=== PATIENT | female | born 1960 | race Caucasian/White ===

== ENCOUNTER → 2017-07-02 | Outpatient (CLI) | payer OTHER ==
[~2017-07-02] MED LIST: AZAT50 PO; CYCL10 PO; DULO30 PO; ETAN50I SC; HYDACE5 PO; HYDSUL200 PO; IBUP400 PO; IBUP800 PO; LEFL20 PO; METF500 PO; METHYLTREXATE PO; METR500 PO; PENVK500 PO; PRAV20 PO; PRED5 PO; SIMV10 PO
[2017-07-03 12:55] LABS: HPV Genotype 16 Not Detected (NOTDET); HPV Genotype 18 Not Detected (NOTDET)
[2017-07-11 11:02] LABS: HPV High Risk Other Detected (NOTDET)
== END | disposition home or self-care (01) ==
LOC: LAB 08:15 → LAB SHORT 08:15
PROVIDERS: Family Medicine
DX: Z01.419 Encounter for gynecological examination (general) (routine) without abnormal findings (principal)
CPT/HCPCS: 87624; G0145

== ENCOUNTER 2018-02-26 00:03 | Day surgery (SDC) | payer OTHER | END 2018-02-26 22:49 | disposition home or self-care (01) | LOC: WOUND 00:03 | DX: L03.011 Cellulitis of right finger (principal); Z86.14 Personal history of Methicillin resistant Staphylococcus aureus infection; L02.511 Cutaneous abscess of right hand | CPT/HCPCS: 87070; 87147; 87205; G0463 ==

== ENCOUNTER 2018-02-26 10:27 | Day surgery (SDC) | payer OTHER | END 2018-02-26 22:49 | disposition home or self-care (01) | LOC: ATC 10:27 | DX: L03.011 Cellulitis of right finger (principal); L02.511 Cutaneous abscess of right hand; Z86.14 Personal history of Methicillin resistant Staphylococcus aureus infection | CPT/HCPCS: 36569; 96365; C1751; J0878 ==

== ENCOUNTER → 2018-05-27 | Outpatient (CLI) | payer OTHER ==
[~2018-05-27] MED LIST changes: +CUBICIN500 MG IV
== END | disposition home or self-care (01) ==
LOC: PLD 07:28 → LAB SHORT 07:28
DX: N72 Inflammatory disease of cervix uteri (principal); N87.0 Mild cervical dysplasia
CPT/HCPCS: 88305

== ENCOUNTER 2020-08-06 05:30 | Emergency (ER) | payer OTHER ==
[~2020-08-06] VITALS: Ht 157.5 cm; Wt 63.5 kg
[2020-08-06] MEDS ORDERED: HYDR1TAB94 PO (06:17)
== END 2020-08-06 06:34 | disposition home or self-care (01) ==
LOC: ER 05:30
DX: S01.01XA Laceration without foreign body of scalp, initial encounter (principal); E11.9 Type 2 diabetes mellitus without complications; Z23 Encounter for immunization; Z88.8 Allergy status to other drugs, medicaments and biological substances; Z79.84 Long term (current) use of oral hypoglycemic drugs; Z79.899 Other long term (current) drug therapy; Z79.52 Long term (current) use of systemic steroids; W01.198A Fall on same level from slipping, tripping and stumbling with subsequent striking against other object, initial encounter; Y92.89 Other specified places as the place of occurrence of the external cause; Y99.0 Civilian activity done for income or pay
CPT/HCPCS: 12001; 90471; 90714; 99284-25; A9270

== ENCOUNTER 2020-08-13 12:41 | Emergency (ER) | payer OTHER ==
[~2020-08-13] VITALS: Ht 160 cm; Wt 65.8 kg
[~2020-08-13 12:41] MED LIST changes: +HYDR1TAB94 PO
== END 2020-08-13 13:00 | disposition home or self-care (01) ==
LOC: ER 12:41
DX: S01.01XD Laceration without foreign body of scalp, subsequent encounter (principal); E11.9 Type 2 diabetes mellitus without complications; I10 Essential (primary) hypertension; E78.00 Pure hypercholesterolemia, unspecified; Z88.8 Allergy status to other drugs, medicaments and biological substances; Z79.84 Long term (current) use of oral hypoglycemic drugs; Z79.899 Other long term (current) drug therapy; X58.XXXD Exposure to other specified factors, subsequent encounter

== ENCOUNTER → 2022-05-21 | Outpatient (CLI) | payer OTHER ==
[2022-05-21 15:37] LABS: BASOPHILS ABSOLUTE AUTO 0.07 K/mm3 (0.00-0.23); BASOPHILS PERCENT AUTO 1 % (0-2); EOSINOPHILS ABSOLUTE AUTO 0.21 K/mm3 (0.00-0.68); EOSINOPHILS PERCENT AUTO 3 % (0-6); Hematocrit 36.6 % (33.0-51.0); Hemoglobin 11.9 g/dL (11.5-16.0); IMMATURE GRAN ABSOLUTE AUTO 0.02 K/mm3 (0.00-0.10); IMMATURE GRAN PERCENT AUTO 0 % (0-1); LYMPHOCYTES ABSOLUTE AUTO 2.14 K/mm3 (0.84-5.20); LYMPHOCYTES PERCENT AUTO 28 % (21-46); MONOCYTES ABSOLUTE AUTO 1.18 K/mm3 (0.16-1.47); MONOCYTES PERCENT AUTO 16 % (4-13); Mean Corpuscular HGB 30.1 pg (26.0-34.0); Mean Corpuscular HGB Conc 32.5 g/dL (31.5-36.5); Mean Corpuscular Volume 92 fL (80-100); Mean Platelet Volume 10.5 fL (9.1-12.4); NEUTROPHILS ABSOLUTE AUTO 3.98 K/mm3 (1.96-9.15); NEUTROPHILS PERCENT AUTO 52 % (41-73); Platelet Count 526 K/mm3 (150-400); RDW Coefficient Variation 14.1 % (11.7-14.2); RDW Standard Deviation 48.1 fL (35.1-46.3); Red Blood Cell Count 3.96 M/mm3 (3.80-5.20)
[2022-05-21 16:36] LABS: Albumin, Blood 3.9 g/dL (3.4-5.0); Albumin/Globulin Ratio 1.2 (0.8-1.8); Bilirubin, Total 0.3 mg/dL (0.1-1.0); Bun/Creatinine Ratio 13.7 (12.0-20.0); Calcium, Blood 9.2 mg/dL (8.5-10.1); Creatinine, Blood 0.73 mg/dL (0.40-1.00); Globulin, Blood 3.3 g/dL (2.2-4.0); Potassium, Blood 3.8 mmol/L (3.5-5.5); Total Protein, Blood 7.2 g/dL (6.4-8.2)
== END | disposition home or self-care (01) ==
LOC: LAB SHORT 11:22
PROVIDERS: Internal Medicine Rheumatology
DX: M05.9 Rheumatoid arthritis with rheumatoid factor, unspecified (principal)
CPT/HCPCS: 80053; 85025; 85651

== ENCOUNTER 2023-05-01 12:35 | Inpatient (IN) | payer BC, MEDICAID ==
[~2023-05-01] VITALS: Ht 157.5 cm; Wt 63.7 kg
[2023-05-01 13:44] LABS: BASOPHILS ABSOLUTE AUTO 0.03 K/mm3 (0.00-0.23); BASOPHILS PERCENT AUTO 0 % (0-2); EOSINOPHILS PERCENT AUTO 0 % (0-6); Hematocrit 28.6 % (33.0-51.0); Hemoglobin 9.8 g/dL (11.5-16.0); IMMATURE GRAN ABSOLUTE AUTO 0.16 K/mm3 (0.00-0.10); IMMATURE GRAN PERCENT AUTO 1 % (0-1); LYMPHOCYTES ABSOLUTE AUTO 0.95 K/mm3 (0.84-5.20); LYMPHOCYTES PERCENT AUTO 8 % (21-46); MONOCYTES ABSOLUTE AUTO 0.52 K/mm3 (0.16-1.47); MONOCYTES PERCENT AUTO 5 % (4-13); Mean Corpuscular HGB 28.7 pg (26.0-34.0); Mean Corpuscular HGB Conc 34.3 g/dL (31.5-36.5); Mean Corpuscular Volume 84 fL (80-100); Mean Platelet Volume 11.6 fL (9.1-12.4); NEUTROPHILS ABSOLUTE AUTO 9.61 K/mm3 (1.96-9.15); NEUTROPHILS PERCENT AUTO 85 % (41-73); NRBC ABSOLUTE 0.02 K/mm3 (0.00-0.02); NRBC Auto 0.2 /100 WBC (0.0-0.2); Platelet Count 155 K/mm3 (150-400); RDW Coefficient Variation 15.5 % (11.7-14.2); RDW Standard Deviation 45.4 fL (35.1-46.3); Red Blood Cell Count 3.41 M/mm3 (3.80-5.20); White Blood Cell Count 11.27 K/mm3 (4.00-11.30)
[2023-05-01] MEDS ORDERED: ATOR20 PO (13:46)
[2023-05-01] MEDS ORDERED: Ventolin/Prove6.7 GM INH (13:46)
[2023-05-01] MEDS ORDERED: FOLI1 PO (13:47)
[2023-05-01] MEDS ORDERED: ACTOS30 MG PO (13:47)
[2023-05-01] MEDS ORDERED: GLIP5 PO (13:48)
[2023-05-01 14:04] LABS: Albumin, Blood 2.3 g/dL (3.4-5.0); Albumin/Globulin Ratio 0.6 (0.8-1.8); Bilirubin, Total 0.5 mg/dL (0.1-1.0); Calcium, Blood 8.3 mg/dL (8.5-10.1); Creatinine, Blood 0.95 mg/dL (0.40-1.00); Globulin, Blood 3.7 g/dL (2.2-4.0); Potassium, Blood 2.9 mmol/L (3.5-5.5)
[2023-05-01 18:32] LABS: Bicarbonate Venous 31.5 mmol/L (24.0-30.0); PCO2 Venous 45.4 mmHg (38-42); pH Blood Venous 7.47 (7.34-7.37)
[2023-05-01 18:39] LABS: C-REACTIVE PROTEIN, EXT RANGE 12.3 mg/dL (0.000-0.300)
[2023-05-01] MEDS ORDERED: Hydroxychloroq200 MG PO (19:00)
[2023-05-01] MEDS ORDERED: IMURAN50 MG PO (19:01)
[2023-05-01] MEDS ORDERED: DULOXETINE HCL60 M1 PO (19:01)
[2023-05-01 19:16] LABS: Thyroid Stimulating Hormone 1.62 uIU/mL (0.360-4.800)
[2023-05-01 19:45] LABS: Adenovirus Not Detected (NOT DETECT); Coronavirus 229E Not Detected (NOT DETECT); Coronavirus HKU1 Not Detected (NOT DETECT); Coronavirus NL63 Not Detected (NOT DETECT); Coronavirus OC43 Not Detected (NOT DETECT); Human Metapneumovirus Not Detected (NOT DETECT); SARS-Cov-2 (COVID-19), BioFire Detected (NOT DETECT)
[2023-05-01 19:46] LABS: Bordetella pertussis Not Detected (NOT DETECT); Chlamydophila pneumoniae Not Detected (NOT DETECT); Human Rhinovirus/Enterovirus Not Detected (NOT DETECT); Influenza A/2009-H1 Not Detected (NOT DETECT); Influenza A/H1 Not Detected (NOT DETECT); Influenza A/H3 Not Detected (NOT DETECT); Influenza B Not Detected (NOT DETECT); Mycoplasma pneumoniae Not Detected (NOT DETECT); Parainfluenza Virus 1 Not Detected (NOT DETECT); Parainfluenza Virus 2 Not Detected (NOT DETECT); Parainfluenza Virus 3 Not Detected (NOT DETECT); Parainfluenza Virus 4 Not Detected (NOT DETECT); Respiratory Syncytial Virus Not Detected (NOT DETECT)
[2023-05-01 20:41] VITALS: BP 127/59
[2023-05-01 20:58] VITALS: BP 108/68
[2023-05-01 21:03] VITALS: BP 124/76
[2023-05-02 03:52] VITALS: BP 116/74
[2023-05-02 06:02] LABS: BASOPHILS PERCENT AUTO 0 % (0-2); EOSINOPHILS PERCENT AUTO 0 % (0-6); Hematocrit 23.9 % (33.0-51.0); Hemoglobin 7.9 g/dL (11.5-16.0); IMMATURE GRAN ABSOLUTE AUTO 0.12 K/mm3 (0.00-0.10); IMMATURE GRAN PERCENT AUTO 2 % (0-1); LYMPHOCYTES ABSOLUTE AUTO 0.37 K/mm3 (0.84-5.20); LYMPHOCYTES PERCENT AUTO 5 % (21-46); MONOCYTES PERCENT AUTO 3 % (4-13); Mean Corpuscular HGB 28.5 pg (26.0-34.0); Mean Corpuscular HGB Conc 33.1 g/dL (31.5-36.5); Mean Corpuscular Volume 86 fL (80-100); Mean Platelet Volume 12.1 fL (9.1-12.4); NEUTROPHILS ABSOLUTE AUTO 6.15 K/mm3 (1.96-9.15); NEUTROPHILS PERCENT AUTO 90 % (41-73); Platelet Count 146 K/mm3 (150-400); RDW Coefficient Variation 15.8 % (11.7-14.2); RDW Standard Deviation 46.5 fL (35.1-46.3); Red Blood Cell Count 2.77 M/mm3 (3.80-5.20); White Blood Cell Count 6.84 K/mm3 (4.00-11.30)
[2023-05-02 06:19] LABS: Albumin, Blood 1.8 g/dL (3.4-5.0); Albumin/Globulin Ratio 0.6 (0.8-1.8); Bilirubin, Total 0.4 mg/dL (0.1-1.0); Calcium, Blood 7.3 mg/dL (8.5-10.1); Creatinine, Blood 0.65 mg/dL (0.40-1.00); Globulin, Blood 3.2 g/dL (2.2-4.0); Magnesium, Blood 1.9 mg/dL (1.6-2.4); Potassium, Blood 4.2 mmol/L (3.5-5.5)
[2023-05-02 07:52] VITALS: BP 122/93
--- NOTE | 2023-05-02 15:09 | NUR ---
SHIFT SUMMARY PT AWAKE AT START OF SHIFT, RESTING QUIETLY WATCHING TV. PT IN ISO FOR COVID/SARS. UP TO BSC WITH 1P SBA D/T IV PUMP/TUBING. STILL UNABLE TO OBTAIN UA ORDER, PT CONTINUES TO CONTAMINATE SAMPLE WITH STOOL. PT IMPROVING, ABLE TO WORK WITH THERAPY. PT PULLED LFA IV SITE WHEN UP WALKING WITH THERAPY. NPC. INS ORDERED AND GIVEN. EDU GIVEN BY RT. ECHO DONE IN THIS AM. CBG'S ELEVATED D/T STEROIDS; SEE CHART. DR BUSTILLOS NOTIFIED AND ADJUSTED INSULIN ORDERS. VISITORS TO THIS AFTERNOON AND STILL REMAIN AT BS. EATING AND DRINKING WELL. NO C/O. CALL LT IN REACH.
[2023-05-02 16:46] VITALS: BP 123/74
[2023-05-02 19:55] VITALS: BP 128/75
[2023-05-03] VITALS (8 sets, daily range): BP systolic 110–156; BP diastolic 77–102
[2023-05-03 06:11] LABS: BASOPHILS ABSOLUTE AUTO 0.01 K/mm3 (0.00-0.23); BASOPHILS PERCENT AUTO 0 % (0-2); EOSINOPHILS PERCENT AUTO 0 % (0-6); Hematocrit 24.7 % (33.0-51.0); Hemoglobin 7.8 g/dL (11.5-16.0); IMMATURE GRAN ABSOLUTE AUTO 0.15 K/mm3 (0.00-0.10); IMMATURE GRAN PERCENT AUTO 2 % (0-1); LYMPHOCYTES ABSOLUTE AUTO 0.78 K/mm3 (0.84-5.20); LYMPHOCYTES PERCENT AUTO 10 % (21-46); MONOCYTES ABSOLUTE AUTO 0.79 K/mm3 (0.16-1.47); MONOCYTES PERCENT AUTO 10 % (4-13); Mean Corpuscular HGB 28.4 pg (26.0-34.0); Mean Corpuscular HGB Conc 31.6 g/dL (31.5-36.5); Mean Corpuscular Volume 90 fL (80-100); Mean Platelet Volume 12.5 fL (9.1-12.4); NEUTROPHILS ABSOLUTE AUTO 5.99 K/mm3 (1.96-9.15); NEUTROPHILS PERCENT AUTO 78 % (41-73); NRBC ABSOLUTE 0.02 K/mm3 (0.00-0.02); NRBC Auto 0.3 /100 WBC (0.0-0.2); Platelet Count 153 K/mm3 (150-400); RDW Coefficient Variation 16.7 % (11.7-14.2); RDW Standard Deviation 51.1 fL (35.1-46.3); Red Blood Cell Count 2.75 M/mm3 (3.80-5.20); White Blood Cell Count 7.72 K/mm3 (4.00-11.30)
--- NOTE | 2023-05-03 06:18 | NUR ---
SHIFT SUMMERY PT RESTING IN BED, PT HAS A BM SOFT AND BROWN BUT WAS NOT ABLE TO GET TO BSC BEFORE HAVING BM. PT COUGH NOT SEEMING SO DRY AND LUNGS NOT CONSTRICKTED YESTERDAY. PT SEEMED TO BE RESTING WELL. CALL LIGHT IN REACH.
[2023-05-03 06:31] LABS: Bun/Creatinine Ratio 30.7 (12.0-20.0); Calcium, Blood 7.7 mg/dL (8.5-10.1); Creatinine, Blood 0.59 mg/dL (0.40-1.00); Potassium, Blood 3.8 mmol/L (3.5-5.5)
--- NOTE | 2023-05-03 13:30 | NUR ---
ASSUMED CARE PT TRANSFERRED TO UNIT FROM MEDICAL FLOOR FOR AFIB WITH RVR. HR 130'S. BP STABLE. PT COMPLAINS OF SOME SHORTNESS OF BREATH. PT PLACED ON 2L NC WITH SATS AT 91%. PT ORIENTED TO UNIT AND CALL LIGHT. PT ENCOURAGED TO CALL FOR AMBULATION. DILTIAZEM TO BE STARTED PER ORDERS. WILL CONTINUE TO MONITOR
--- NOTE | 2023-05-03 14:30 | NUR ---
UPDATE PT CONVERTED TO NSR IN THE 70'S AT APPROXIMATELY 1420. BP STABLE. DR. BUSTILLOS CALLED AND ORDERS TO STOP CARDIZEM DRIP AND START PO CARDIZEM. WILL MEDICATE PER ORDERS. PT PLACED ON 2L NC DUE TO SATS BEING AT 90. PT DENIES ANY PAIN. WILL CONTINUE TO MONITOR
--- NOTE | 2023-05-03 14:35 | NUR ---
PT AWAKE AT START OF SHIFT. UP INDEPENDENTLY TO BSC. STILL HAVING LOOSE STOOLS; IMMODIUM ORDERED AND GIVEN. PT IN SR AT START OF SHIFT, SOON INCREASED TO ST @ 0843. PT HAVING INCREASED AND CONSISTANT COUGHING EPISODES. 0900 TELE MX CALLED TO REPORT RHYTHM CONVERTED TO A-FIB WITH RATES 120'S-130'S. DR BUSTILLOS NOTIFIED; NEW ORDERS PLACED. PT MEDICATED PER EMAR; SEE CHART. EKG SHOWING A-FIB; SEE CHART. HR CONTINUED TO INCREASE EVEN WITH IV LOPRESSOR. DR BUSTILLOS CONTINUED TO MX AND TREAT WITHOUT GOOD EFFECT. PT TX'D TO PCU TO BE PUT ON CARDIZEM DRIP. REPORT CALLED TO HAO EMANUEL. PT TX'D WITH ALL BELONGINGS; DAUGHTER IN RM ASSISTING.
--- NOTE | 2023-05-03 15:30 | NUR ---
ASSUMED CARE PT ALERT AND ORIENTED. TRANSFERRED FROM MEDICAL FLOOR DUE TO AFIB RVR. HR 130'S. BP STABLE. DILTIAZEM DRIP STARTED PER ORDERS. PT ORIENTED TO ROOM AND CALL LIGHT. PT EDUCATED ON NEW MEDICATION. PT ENCOURAGED TO CALL BEFORE AMBULATION. WILL CONTINUE TO MONITOR CLOSELY
--- NOTE | 2023-05-03 23:00 | NUR ---
AOC: PATIENT IS ALERT AND ORIENTED X 4 ABLE TO MAKE NEEDS KNOWN, VERY FATIGUED, CURRENTLY 93% ON 2.5 L VIA NC WHICH WAS A INCREASE IN O2 DEMAND AFTER FLIPPING INTO AFIB RVR. CURRENTLY IS 60'S SR. AFEBRILE. DENIES CHEST PAIN PRESSURE OR SOB AT REST. GERNALIZED WEAKNESS WITH MOVEMENT ETHELENLTY A 1P ASSIST FOR SAFETY AND LINE MANAGEMENT TO BSC. VOIDING ON OWN. ENDORSES LAST BM ON 05/02. ABX THIS EVEING ON Q6 CARDIZEM VSS. NO IMMEDIATE CONCERNS FOR THIS PATIENT, TELEMETRY IN PLACE. ABLE TO TAKE PILLS WHOLE WITH THIN LIQUIDS. MILDLY POOR MEDICAL EDUCATION. CBG CONTROLLED NO INSULIN COVERAGE THIS EVENING AC HS CHECKS.
[2023-05-04 04:15] VITALS: BP 135/74
[2023-05-04 05:14] LABS: BASOPHILS ABSOLUTE AUTO 0.01 K/mm3 (0.00-0.23); BASOPHILS PERCENT AUTO 0 % (0-2); EOSINOPHILS PERCENT AUTO 0 % (0-6); Hematocrit 24.7 % (33.0-51.0); Hemoglobin 7.9 g/dL (11.5-16.0); IMMATURE GRAN ABSOLUTE AUTO 0.14 K/mm3 (0.00-0.10); IMMATURE GRAN PERCENT AUTO 2 % (0-1); LYMPHOCYTES ABSOLUTE AUTO 0.93 K/mm3 (0.84-5.20); LYMPHOCYTES PERCENT AUTO 13 % (21-46); MONOCYTES ABSOLUTE AUTO 0.58 K/mm3 (0.16-1.47); MONOCYTES PERCENT AUTO 8 % (4-13); Mean Corpuscular HGB 28.6 pg (26.0-34.0); Mean Corpuscular Volume 90 fL (80-100); Mean Platelet Volume 12.8 fL (9.1-12.4); NEUTROPHILS ABSOLUTE AUTO 5.34 K/mm3 (1.96-9.15); NEUTROPHILS PERCENT AUTO 76 % (41-73); NRBC ABSOLUTE 0.03 K/mm3 (0.00-0.02); NRBC Auto 0.4 /100 WBC (0.0-0.2); Platelet Count 161 K/mm3 (150-400); RDW Coefficient Variation 17.2 % (11.7-14.2); RDW Standard Deviation 50.9 fL (35.1-46.3); Red Blood Cell Count 2.76 M/mm3 (3.80-5.20)
[2023-05-04 05:47] LABS: Bun/Creatinine Ratio 45.5 (12.0-20.0); Calcium, Blood 7.8 mg/dL (8.5-10.1); Creatinine, Blood 0.53 mg/dL (0.40-1.00)
[2023-05-04 08:16] VITALS: BP 128/55
[2023-05-04 12:16] VITALS: BP 125/114
[2023-05-04 16:37] VITALS: BP 120/66
--- NOTE | 2023-05-04 18:49 | NUR ---
SHIFT SUMMARY/TRANSFER: PT HAS BEEN A&Ox4, COOPERATIVE W/CARE, ABLE TO MAKE NEEDS KNOWN. PT REPORTS MILD SOB W/ACTIVITY, ABLE TO MAINTAIN O2 SATS >92% ON 1-2 L/MIN NC. PT DENIES CP T/OUT THE SHIFT, SR ON MONITOR W/RATE 60s-70s, TOLERATING PO CARDIZEM. PT HAS BEEN SBA TO BS. PT MEDICATED PER EMAR W/OUT DIFFICULTY. PT RECEIVED NEW ROOM ASSIGNMENT, TRANSFERED TO MEDICAL DEPT, REPORT GIVEN TO RECEIVING RN.
[2023-05-04 20:38] VITALS: BP 126/69
[2023-05-05] VITALS (8 sets, daily range): BP systolic 96–139; BP diastolic 61–85
[2023-05-05 05:11] LABS: BASOPHILS ABSOLUTE AUTO 0.01 K/mm3 (0.00-0.23); BASOPHILS PERCENT AUTO 0 % (0-2); EOSINOPHILS PERCENT AUTO 0 % (0-6); Hematocrit 26.3 % (33.0-51.0); Hemoglobin 8.5 g/dL (11.5-16.0); IMMATURE GRAN ABSOLUTE AUTO 0.23 K/mm3 (0.00-0.10); IMMATURE GRAN PERCENT AUTO 3 % (0-1); LYMPHOCYTES ABSOLUTE AUTO 0.71 K/mm3 (0.84-5.20); LYMPHOCYTES PERCENT AUTO 10 % (21-46); MONOCYTES ABSOLUTE AUTO 0.61 K/mm3 (0.16-1.47); MONOCYTES PERCENT AUTO 8 % (4-13); Mean Corpuscular HGB 29.1 pg (26.0-34.0); Mean Corpuscular HGB Conc 32.3 g/dL (31.5-36.5); Mean Corpuscular Volume 90 fL (80-100); Mean Platelet Volume 12.7 fL (9.1-12.4); NEUTROPHILS ABSOLUTE AUTO 5.71 K/mm3 (1.96-9.15); NEUTROPHILS PERCENT AUTO 79 % (41-73); NRBC ABSOLUTE 0.06 K/mm3 (0.00-0.02); NRBC Auto 0.8 /100 WBC (0.0-0.2); Platelet Count 192 K/mm3 (150-400); RDW Coefficient Variation 17.4 % (11.7-14.2); RDW Standard Deviation 53.3 fL (35.1-46.3); Red Blood Cell Count 2.92 M/mm3 (3.80-5.20); White Blood Cell Count 7.27 K/mm3 (4.00-11.30)
--- NOTE | 2023-05-05 05:31 | NUR ---
SHIFT SUMMARY 62 YR F ADMITTED ON 05/02/23 FOR SYNCOPE. FULL CODE. NO ACUTE CHANGES THIS SHIFT. PT IS POSITIVE FOR COVID. SHE IS A SBA TO BEDSIDE COMMODE BUT PREFERS TO DO IT HERSELF. SHE IS VERY PLEASANT AND COOPERATIVE WITH CARE. NO C/O PAIN OR DISCOMFORT THIS SHIFT.
[2023-05-05 05:43] LABS: Bun/Creatinine Ratio 33.8 (12.0-20.0); Calcium, Blood 8.2 mg/dL (8.5-10.1); Creatinine, Blood 0.59 mg/dL (0.40-1.00); Magnesium, Blood 1.8 mg/dL (1.6-2.4); Potassium, Blood 4.1 mmol/L (3.5-5.5)
--- NOTE | 2023-05-05 14:41 | NUR ---
PATIENT UP TO SHOWER WITH ONE PERSON ASSIST. PATIENT HAS FAMILY THAT VISITS. PATIENT HAS PLEASANT AFFECT. SMILING OFTEN AND IS COOPERATIVE WITH CARE. PATIENT IS ONE PERSON ASSIST TO BEDSIDE COMMODE. TAKES HER PILLS WHOLE WITH WATER. HAS AN EPISODE OF AFIB WITH RVR. TREATED WITH CARDIZEM PUSH. CONVERTED TO SINUS WITH PAC'S 90 MINUTES LATER. PATIENT REMAINS ON TELE. IS ASYMPTOMATIC.
--- NOTE | 2023-05-05 21:17 | NUR ---
CALLED HOSPITALIST INFORMED HIM OF GLUCOSE LAB. WE WILL ADMINISTER HUMALOG ORDERED AND CONTINUE TO MONITOR
[2023-05-06 03:07] VITALS: BP 128/62
--- NOTE | 2023-05-06 04:15 | NUR ---
SHIFT SUMMARY ADMITTED FOR SYNCOPE. FULL CODE. ENHANCED PRECAUTIONS FOR COVID+. ANTIB RX, STEROIDS ARE SCHEDULED. REMDESIVIR COURSE IS COMPLETED. TELEMETRY: NSR @ 66 BPM. SHE IS HOPEFUL FOR DC HOME TODAY. SHE IS A&O X4, REGULAR DIET. SHE HAS A HX OF RA AND TAKES IMURAN AND ARAVA AT HOME. SHE IS ACHS CBG'S HERE. SHE TAKES ONLY GLIPIZIDE AT HOME.
[2023-05-06 05:25] LABS: BASOPHILS ABSOLUTE AUTO 0.02 K/mm3 (0.00-0.23); BASOPHILS PERCENT AUTO 0 % (0-2); EOSINOPHILS PERCENT AUTO 0 % (0-6); Hematocrit 27.2 % (33.0-51.0); Hemoglobin 8.6 g/dL (11.5-16.0); IMMATURE GRAN ABSOLUTE AUTO 0.17 K/mm3 (0.00-0.10); IMMATURE GRAN PERCENT AUTO 2 % (0-1); LYMPHOCYTES ABSOLUTE AUTO 0.71 K/mm3 (0.84-5.20); LYMPHOCYTES PERCENT AUTO 9 % (21-46); MONOCYTES ABSOLUTE AUTO 0.64 K/mm3 (0.16-1.47); MONOCYTES PERCENT AUTO 9 % (4-13); Mean Corpuscular HGB 28.6 pg (26.0-34.0); Mean Corpuscular HGB Conc 31.6 g/dL (31.5-36.5); Mean Corpuscular Volume 90 fL (80-100); Mean Platelet Volume 11.8 fL (9.1-12.4); NEUTROPHILS PERCENT AUTO 80 % (41-73); NRBC ABSOLUTE 0.09 K/mm3 (0.00-0.02); NRBC Auto 1.2 /100 WBC (0.0-0.2); Platelet Count 234 K/mm3 (150-400); RDW Coefficient Variation 17.7 % (11.7-14.2); RDW Standard Deviation 52.6 fL (35.1-46.3); Red Blood Cell Count 3.01 M/mm3 (3.80-5.20); White Blood Cell Count 7.54 K/mm3 (4.00-11.30)
[2023-05-06 05:43] LABS: Bun/Creatinine Ratio 29.2 (12.0-20.0); Creatinine, Blood 0.62 mg/dL (0.40-1.00); Magnesium, Blood 1.9 mg/dL (1.6-2.4); Potassium, Blood 3.9 mmol/L (3.5-5.5)
[2023-05-06 07:11] VITALS: BP 135/70
[2023-05-06] MEDS ORDERED: DILT180 PO (13:10)
--- NOTE | 2023-05-06 13:37 | NUR ---
DISCHARGE HOME PT DISCHARGED HOME VIA W/C. FAMILY HERE TO PICK HER UP. RIGHT F IV REMOVED WITH CANNULA INTACT. PRESSURE DRESSING APPLIED. PERSCRIPTIONS FAXED TO [employer]. HARD SCRIPT GIVEN TO PT FOR BLOOD DRAW IN 7 DAYS. CONTINUE POC.
== END 2023-05-06 13:45 | disposition home health service (06) | DRG 177 ==
LOC: ER 12:35 → MEDS 12:36 → PCU 05-02 13:57 → MEDS 05-02 13:58 → PCU 05-03 13:14 → MEDS 05-04 18:06
PROVIDERS: Hospitalist; Nurse Practitioner Acute Care; Physician Assistant; ADMIT Student in an Organized Health Care Education/Training Program
PROC: XW033E5 Introduction of Remdesivir Anti-infective into Peripheral Vein, Percutaneous Approach, New Technology Group 5 (ICD-10-PCS; principal; 2023-05-02)
PROC: 3E0333Z Introduction of Anti-inflammatory into Peripheral Vein, Percutaneous Approach (ICD-10-PCS; 2023-05-02)
DX: U07.1 COVID-19 (principal); I50.33 Acute on chronic diastolic (congestive) heart failure; J12.82 Pneumonia due to coronavirus disease 2019; J15.69 Pneumonia due to other Gram-negative bacteria; J96.01 Acute respiratory failure with hypoxia; D84.821 Immunodeficiency due to drugs; E87.1 Hypo-osmolality and hyponatremia; E11.9 Type 2 diabetes mellitus without complications; M06.9 Rheumatoid arthritis, unspecified; R19.7 Diarrhea, unspecified; R11.0 Nausea; E78.5 Hyperlipidemia, unspecified; R55 Syncope and collapse; E87.6 Hypokalemia; D64.9 Anemia, unspecified; R94.31 Abnormal electrocardiogram [ECG] [EKG]; I11.0 Hypertensive heart disease with heart failure; R74.01 Elevation of levels of liver transaminase levels; I27.20 Pulmonary hypertension, unspecified; I48.0 Paroxysmal atrial fibrillation; Z79.84 Long term (current) use of oral hypoglycemic drugs; Z79.52 Long term (current) use of systemic steroids
CPT/HCPCS: 0202U; 36415; 71046; 71260; 80048; 80053; 82550; 82607; 82746; 82803; 82947; 83735; 83880; 83930; 83935; 84132; 84145; 84295; 84300; 84443; 84484; 85025; 85651; 86140; 93005; 93010; 93306; 94640; 94664; 94760; 94762; 96365-59; 96366; 96368; 96372; 97110; 97110-CQ; 97116; 97116-CQ; 97162; 97165; 97530; 99285-25; A9270; G0378; J0248; J0456; J0696; J1650; J1815; J1940; J3480; J7030; J7050; J7500; J7626; Q9967

== ENCOUNTER → 2023-05-12 | Outpatient (CLI) | payer BC, MEDICAID ==
[~2023-05-12] MED LIST changes: +ACTOS30 MG PO; +ATOR20 PO; +DILT180 PO; +DULOXETINE HCL60 M1 PO; +FOLI1 PO; +GLIP5 PO; +Hydroxychloroq200 MG PO; +IMURAN50 MG PO; +Ventolin/Prove6.7 GM INH
[2023-05-12 11:13] LABS: BASOPHILS ABSOLUTE AUTO 0.02 K/mm3 (0.00-0.23); BASOPHILS PERCENT AUTO 0 % (0-2); EOSINOPHILS ABSOLUTE AUTO 0.01 K/mm3 (0.00-0.68); EOSINOPHILS PERCENT AUTO 0 % (0-6); Hematocrit 29.2 % (33.0-51.0); Hemoglobin 9.6 g/dL (11.5-16.0); IMMATURE GRAN ABSOLUTE AUTO 0.27 K/mm3 (0.00-0.10); IMMATURE GRAN PERCENT AUTO 2 % (0-1); LYMPHOCYTES ABSOLUTE AUTO 0.73 K/mm3 (0.84-5.20); LYMPHOCYTES PERCENT AUTO 7 % (21-46); MONOCYTES PERCENT AUTO 6 % (4-13); Mean Corpuscular HGB 29.4 pg (26.0-34.0); Mean Corpuscular HGB Conc 32.9 g/dL (31.5-36.5); Mean Corpuscular Volume 90 fL (80-100); Mean Platelet Volume 9.8 fL (9.1-12.4); NEUTROPHILS ABSOLUTE AUTO 9.38 K/mm3 (1.96-9.15); NEUTROPHILS PERCENT AUTO 84 % (41-73); Platelet Count 311 K/mm3 (150-400); RDW Coefficient Variation 19.4 % (11.7-14.2); RDW Standard Deviation 59.7 fL (35.1-46.3); Red Blood Cell Count 3.26 M/mm3 (3.80-5.20); White Blood Cell Count 11.11 K/mm3 (4.00-11.30)
[2023-05-12 11:29] LABS: Albumin, Blood 2.2 g/dL (3.4-5.0); Albumin/Globulin Ratio 0.6 (0.8-1.8); Bilirubin, Total 0.3 mg/dL (0.1-1.0); Creatinine, Blood 0.8 mg/dL (0.40-1.00); Globulin, Blood 3.9 g/dL (2.2-4.0); Potassium, Blood 2.8 mmol/L (3.5-5.5); Total Protein, Blood 6.1 g/dL (6.4-8.2)
== END ==
LOC: LAB 11:09 → LAB SHORT 11:09
PROVIDERS: Family Medicine
DX: U07.1 COVID-19 (principal)
CPT/HCPCS: 80053; 85025

== ENCOUNTER 2023-06-07 19:01 | Inpatient (IN) | payer BC ==
[~2023-06-07] VITALS: Ht 157.5 cm; Wt 58.9 kg
[2023-06-07 19:24] LABS: BASOPHILS ABSOLUTE AUTO 0.05 K/mm3 (0.00-0.23); BASOPHILS PERCENT AUTO 1 % (0-2); EOSINOPHILS ABSOLUTE AUTO 0.01 K/mm3 (0.00-0.68); EOSINOPHILS PERCENT AUTO 0 % (0-6); Hemoglobin 10.5 g/dL (11.5-16.0); IMMATURE GRAN ABSOLUTE AUTO 0.23 K/mm3 (0.00-0.10); IMMATURE GRAN PERCENT AUTO 2 % (0-1); LYMPHOCYTES ABSOLUTE AUTO 0.86 K/mm3 (0.84-5.20); LYMPHOCYTES PERCENT AUTO 8 % (21-46); MONOCYTES ABSOLUTE AUTO 0.87 K/mm3 (0.16-1.47); MONOCYTES PERCENT AUTO 8 % (4-13); Mean Corpuscular HGB 28.9 pg (26.0-34.0); Mean Corpuscular HGB Conc 32.8 g/dL (31.5-36.5); Mean Corpuscular Volume 88 fL (80-100); Mean Platelet Volume 9.3 fL (9.1-12.4); NEUTROPHILS PERCENT AUTO 81 % (41-73); Platelet Count 409 K/mm3 (150-400); RDW Coefficient Variation 18.9 % (11.7-14.2); RDW Standard Deviation 59.7 fL (35.1-46.3); Red Blood Cell Count 3.63 M/mm3 (3.80-5.20); White Blood Cell Count 10.72 K/mm3 (4.00-11.30)
[2023-06-07 19:42] LABS: Albumin, Blood 1.9 g/dL (3.4-5.0); Albumin/Globulin Ratio 0.5 (0.8-1.8); Bilirubin, Total 0.4 mg/dL (0.1-1.0); Bun/Creatinine Ratio 28.2 (12.0-20.0); Calcium, Blood 7.6 mg/dL (8.5-10.1); Creatinine, Blood 0.5 mg/dL (0.40-1.00); Globulin, Blood 3.5 g/dL (2.2-4.0); Potassium, Blood 2.5 mmol/L (3.5-5.5); Total Protein, Blood 5.4 g/dL (6.4-8.2)
[2023-06-07 20:13] LABS: Base Excess Venous -0.6 mmol/L; Bicarbonate Venous 23.5 mmol/L (24.0-30.0); PCO2 Venous 42.5 mmHg (38-42); pH Blood Venous 7.37 (7.34-7.37)
[2023-06-07 20:31] LABS: Thyroid Stimulating Hormone 5.13 uIU/mL (0.360-4.800)
[2023-06-07 21:04] LABS: Influenza A, PCR NEGATIVE (NEGATIVE); Influenza B, PCR NEGATIVE (NEGATIVE); Resp Syncytial Virus, PCR NEGATIVE (NEGATIVE); SARS-Cov-2 (COVID-19) PCR, MMC NEGATIVE (NEGATIVE)
[2023-06-08] VITALS (14 sets, daily range): BP systolic 103–182; BP diastolic 8–160
[2023-06-08 00:45] LABS: Adenovirus F 40/41 Not Detected (NOT DETECT); Astrovirus Not Detected (NOT DETECT); Campylobacter Sp Not Detected (NOT DETECT); Cryptosporidium Not Detected (NOT DETECT); Cyclospora Cayetanensis Not Detected (NOT DETECT); E. Coli O157 Not Detected (NOT DETECT); Entamoeba Histolytica Not Detected (NOT DETECT); Enteroaggregative E. coli-EAEC Not Detected (NOT DETECT); Enteropathogenic E. coli-EPEC Not Detected (NOT DETECT); Enterotoxigenic E. coli-ETEC Not Detected (NOT DETECT); Giardia Lamblia Not Detected (NOT DETECT); Norovirus GI/GII Not Detected (NOT DETECT); Plesiomonas Shigelloides Not Detected (NOT DETECT); Rotavirus A Not Detected (NOT DETECT); Salmonella Sp Not Detected (NOT DETECT); Sapovirus Not Detected (NOT DETECT); Shiga Toxin-prod E. coli-STEC Not Detected (NOT DETECT); Shigella/Enteroin E. coli-EIEC Not Detected (NOT DETECT); Vibrio Cholerae Not Detected (NOT DETECT); Vibrio Sp Not Detected (NOT DETECT); Yersinia Enterocolitica Not Detected (NOT DETECT)
[2023-06-08] MEDS ORDERED: ERGO50000 PO (00:53)
[2023-06-08] MEDS ORDERED: PRAV20 PO (00:54)
--- NOTE | 2023-06-08 02:28 | NUR ---
ARRIVAL TO UNIT AT APPROX 0000, PATIENT ARRIVED TO UNIT VIA ED GURNEY. UPON ARRIVAL, PATIENT REPORTING URGENT NEED TO USE RESTROOM. PATIENT ABLE TO STAND FROM ED GURNEY TO BEDSIDE COMMODE WITH ONE PERSON ASSIST. GAIT UNSTEADY. 1 UNMEASURED VOID AND 1 LOOSE BM. PATIENT TRANSFERRED TO BED WITH 1 PERSON ASSIST. PATIENT NOTICEABLE SHORT OF BREATH, RR 22-26. REPORTS FEELING PALPATIONS. TELEMETRY SHOWING AFIB RVR 160-180's. BP ELEVATED, SBP 180's. PLACED ON 2L VIA NASAL CANNULA, SATS 90-92%. THIS RN REQUESTED POLICY CHANGE CLERK TO CONTACT MD, ORDER RECEIVED FOR CARDIZEM GTT. THIS RN INITIATED THERAPY PER EMAR, TITRATED PER EMAR. IS CURRENTLY INFUSING AT 10MG/HR. RATE 120's-130's WITH OCCASSIONAL RATE INCREASE TO 140's WITH ACTIVITY. PATIENT REPORTS DECREASED SHORTNESS OF BREATH AT REST. IS CURRENTLY ON ROOM AIR, SATS >95%. NO LONGER REPORTS PALPATIONS. BP STABLE, SBP 100's-120's. PATIENT IS ALERT AND ORIENTED X3-4. IS A POOR HISTORIAN AND CAN OVERESTIMATE HER ABILITIES AT THIS TIME. BED ALARM IN PLACE. ADMIT HISTORY GATHERED FROM RECENT ADMISSION FOR [facility]. EXPERIENCES URINARY URGENCY, INCONTINENCE. PUREWICK IN PLACE FOR MANAGEMENT. CALL LIGHT IN REACH.
[2023-06-08 03:56] LABS: Albumin, Blood 1.7 g/dL (3.4-5.0); Albumin/Globulin Ratio 0.5 (0.8-1.8); Bilirubin, Total 0.3 mg/dL (0.1-1.0); Bun/Creatinine Ratio 25.5 (12.0-20.0); Calcium, Blood 7.2 mg/dL (8.5-10.1); Creatinine, Blood 0.43 mg/dL (0.40-1.00); Globulin, Blood 3.1 g/dL (2.2-4.0); Potassium, Blood 3.7 mmol/L (3.5-5.5); Total Protein, Blood 4.8 g/dL (6.4-8.2)
[2023-06-08 03:56] LABS: BASOPHILS ABSOLUTE AUTO 0.04 K/mm3 (0.00-0.23); BASOPHILS PERCENT AUTO 0 % (0-2); EOSINOPHILS PERCENT AUTO 0 % (0-6); Hematocrit 27.2 % (33.0-51.0); IMMATURE GRAN ABSOLUTE AUTO 0.27 K/mm3 (0.00-0.10); IMMATURE GRAN PERCENT AUTO 2 % (0-1); LYMPHOCYTES ABSOLUTE AUTO 0.34 K/mm3 (0.84-5.20); LYMPHOCYTES PERCENT AUTO 2 % (21-46); MONOCYTES ABSOLUTE AUTO 0.52 K/mm3 (0.16-1.47); MONOCYTES PERCENT AUTO 4 % (4-13); Mean Corpuscular HGB 29.1 pg (26.0-34.0); Mean Corpuscular HGB Conc 33.1 g/dL (31.5-36.5); Mean Corpuscular Volume 88 fL (80-100); Mean Platelet Volume 9.3 fL (9.1-12.4); NEUTROPHILS PERCENT AUTO 92 % (41-73); Platelet Count 410 K/mm3 (150-400); RDW Standard Deviation 60.1 fL (35.1-46.3); Red Blood Cell Count 3.09 M/mm3 (3.80-5.20); White Blood Cell Count 13.97 K/mm3 (4.00-11.30)
--- NOTE | 2023-06-08 05:30 | NUR ---
SHIFT SUMMARY NO ACUTE CHANGES SINCE PREVIOUS NOTES. PATIENT REMAINS ALERT AND ORIENTED X3-4. CARDIZEM GTT INCREASED TO 15MG/HR PER EMAR RATE BEGAN TRENDING UP 130's-140's. TELEMETRY CURRENTLY SHOWING AFIB 90's-110's. BP STABLE, SBP 110's. MAP >65. NO FURTHER REPORT OF PALPATIONS OR SHORTNESS OF BREATH AT REST. ON ROOM AIR, SATS >90%. OCCASSIONAL NONPRODUCTIVE CONGESTED COUGH NOTED. PUREWICK REMOVED DUE TO FREQUENT LOOSE INCONTINENT STOOLS. IS UP TO BSC WITH 1 PERSON ASSIST. PULL-UP ATTENDS IN PLACE. VOIDING. MULTIPLE LOOSE STOOLS. CALL LIGHT IN REACH. WILL REPORT TO ONCOMING RN.
--- NOTE | 2023-06-08 06:03 | NUR ---
CARDIZEM GTT RATE DECREASE PATIENT's HEART RATE BEGINNING TO TREND 90's-100's, OCCASSIONAL DECREASES TO 80's. BP STABLE. CARDIZEM GTT DECREASED FROM 15MG/HR TO 10MG/HR PER EMAR.
--- NOTE | 2023-06-08 13:11 | NUR ---
Upon receiviing a referral for spiritual care, I visited the patient. She is lying on her side in bed and alert. She tells me about medical issues, her family dynamics and her victor m. She explains her concerns about what might be happening with her medically, and about the solid support of her oldest dtr and SinL (and lack of support from her other two children) and about her personal Anabaptist spiritual journey (lots of prayer but no effort organized amish). She requests a prayer to be said, which I gladly supply. I provide therapeutic listening, encouragement and a calming presence, as well. Patient responded well and showed signs of increased peace. I will continue to remain available to patient and family.
--- NOTE | 2023-06-08 18:06 | NUR ---
Shift summary Pt a&ox3. N/v this am. Call placed to MD Doty. MD Doty w/ orders for zofran, given per emar. Sp02>90% on ra-2l nc. Telemetry shows Afib, hr 80's-130's. Cardizem gtt infusing at 5. Hr currently avg 100'. Bp stable, 110's sbp. PO cardizem given per emar this afternoon. Pt up to bsc 1 person assist to void and have bm. bed bath given this shift. Pt has family in room this afternoon. abx infused per emar. Pt currently sitting in bed, eating. Call light in reach. Bed alarm on.
[2023-06-09 04:49] VITALS: BP 103/68
--- NOTE | 2023-06-09 06:43 | NUR ---
SHIFT SUMMARY PATIENT ALERT, ORIENTED x3, ANSWERING QUESTIONS APPROPRIATLEY BUT IS FORGETFUL AT TIMES IN CONVERSATION. BP STABLE, CARDIZEM GTT INFUSING PER EMAR, MEDICATED WITH PRN ORAL CARDIZEM WELL FOR RATE CONTROL. SEE FLOWSHEET FOR TITRATIONS. PATIENT TITRATED TO 6L NC DURING THE NIGHT D/T DESATTING WHILE SLEEPING AND REPORTING SOB. PATIENT EDUCATED ON IMPORTANCE OF COUGHING AND DEEP BREATHING. SUCTION PROVIDED TO ASSIST WITH SECRETIONS. PATIENT STANDBY ASSIST TO BEDSIDE COMMODE, ADEQUATE OUTPUT DURING THE NIGHT. NO OTHER CHANGES, WILL REPORT TO DAY SHIFT RN.
[2023-06-09 07:37] VITALS: BP 125/73
[2023-06-09 10:52] VITALS: BP 103/72
--- NOTE | 2023-06-09 14:09 | NUR ---
UPDATE CARDIZEM GTT TURNED OFF APPROX 1340. HR AVG 90'S. CALL PLACED TO MD FOUNTAIN FOR UPDATE. MD FOUNTAIN W/ ORDERS FOR PO CARDIZEM NOW, AND THEN DAILY, SEE EMAR.
[2023-06-09 14:17] VITALS: BP 114/80
--- NOTE | 2023-06-09 17:25 | NUR ---
shift summary pt a&ox4. Sp02>90% on 5l NC. Pt c/o of sob a few times this shift, tachypenia noted. Pt audibly wheezy. Breathing tx given per emar. Pt told this RN and Rt that she has home inhalor and uses it 4 times/day. Telemetry shows Afib, hr 90's-110's. Cardizem gtt off. Po cardizem started. Up to bsc to void/have bm. Bed bath given. denies pain. Abx infused per emar. Call light in reach. Pt resting in bed.
--- NOTE | 2023-06-09 18:11 | NUR ---
UPDATE PT INCREASINGLY SOB/WHEEZING THIS AFTERNOON. BREATHING TX GIVEN, PT STATES HELPED. STILL AUDIBLY WHEEZY, SOB. PT DENIES SMOKING HX. STATES HX OF ASTHMA "SINCE I WAS A KID". CALL PLACED TO MD FOUNTAIN. MD FOUNTAIN W/ ORDERS FOR SOLUMEDROL, SEE EMAR. RT UPDATED.
[2023-06-09 19:43] VITALS: BP 134/83
--- NOTE | 2023-06-09 21:38 | NUR ---
ASSUMPTION OF CARE/PATIENT UPDATE THIS RN ASSUMED CARE OF PATIENT AT 1900. PT NOTED TO BE DESATTING ON 8L VIA HIFLOW NC TO THE MID 80'S; O2 INCREASED TO 10L. PT NOTED TO HAVE CRACKLES/WHEEZING LS T/O. RT TO BEDSIDE FOR DUONEB. DISCUSSED PT LIKELY NEEDING BIPAP. CALL PLACED TO MD FERNANDEZ REGARDING DISCUSSION WITH RT. ORDER FOR BIPAP/CPAP PROTOCOL PLACED. AFIB WITH HR 110'S AT TIME OF SHIFT CHANGE; PRN CARDIZEM GIVEN. BP STABLE. AFEBRILE. PT DENIES SOB. TACHYPNEA NOTED. PT A&O. CALLING APPRORIATELY. PT WEARING BIPAP AT TIME OF WRITING THIS NOTE. BED IN LOWEST POSITION AND CALL LIGHT WITHIN REACH.
[2023-06-09 23:44] VITALS: BP 111/72
[2023-06-10 03:05] VITALS: BP 115/82
--- NOTE | 2023-06-10 04:29 | NUR ---
SHIFT SUMMARY SEE PREVIOUS NOTE. PT WEARING BIPAP FOR THE MAJORITY OF THIS SHIFT. TITRATING BLEED IN O2 NEEDED; PT CURRENTLY NEEDING 5L BLEED IN TO MAINTAIN SPO2 >90%. BP STABLE. AFIB WITH HR 90-100'S. AFEBRILE. PT IS ABLE TO REPOSITION SELF INDEPENDENTLY IN BED. 1P ASSIST TO BSC FOR VOIDING. BED ALARM ON FOR SAFETY. BED IN LOWEST POSITION AND CALL LIGHT WITHIN REACH. THIS RN WILL REPORT TO ONCOMING DAYSHIFT RN.
[2023-06-10 05:40] LABS: Hematocrit 27.9 % (33.0-51.0); Hemoglobin 9.1 g/dL (11.5-16.0); Mean Corpuscular HGB Conc 32.6 g/dL (31.5-36.5); Mean Corpuscular Volume 89 fL (80-100); Mean Platelet Volume 10.2 fL (9.1-12.4); NRBC ABSOLUTE 0.03 K/mm3 (0.00-0.02); NRBC Auto 0.3 /100 WBC (0.0-0.2); Platelet Count 396 K/mm3 (150-400); RDW Coefficient Variation 19.6 % (11.7-14.2); RDW Standard Deviation 62.2 fL (35.1-46.3); Red Blood Cell Count 3.14 M/mm3 (3.80-5.20); White Blood Cell Count 8.58 K/mm3 (4.00-11.30)
[2023-06-10 06:42] LABS: Iron Serum 18 ug/dL (50-170); Magnesium, Blood 1.7 mg/dL (1.6-2.4); Percent Saturation 9.8 % (15.0-50.0); Thyroxine (T4) 6.1 ug/dL (4.8-13.9); Total Iron Binding Capacity 183 ug/dL (250-450)
[2023-06-10 06:43] LABS: Albumin, Blood 1.8 g/dL (3.4-5.0); Anion Gap 11 mmol/L (6-16); Blood Urea Nitrogen 21 mg/dL (8-24); Bun/Creatinine Ratio 52.9 (12.0-20.0); CO2, Blood 21 mmol/L (21-32); Chloride, Blood 99 mmol/L (98-108); Ferritin, Serum 2738 ng/mL (8-252); Glomerular Filtration Rate 110 (60-); Glucose, Blood 196 mg/dL (70-99); Phosphorus, Blood 3.1 mg/dL (2.5-4.9); Potassium, Blood 4.3 mmol/L (3.5-5.5); Sodium, Blood 131 mmol/L (136-145)
[2023-06-10 07:24] VITALS: BP 104/78
[2023-06-10 11:34] VITALS: BP 95/56
[2023-06-10 15:34] VITALS: BP 99/67
--- NOTE | 2023-06-10 18:06 | NUR ---
SHIFT SUMMARY PT IS ALERT AND ORIENTED X 4 BUT APPEARS FORGETFUL AT TIMES. BP STABLE. HR REACHED 140 THIS AM W/ ACTIVITY TO BATHROOM BUT HAS SINCE REMAINED IN 80'S-110'S AFTER AM ORDERED DILTIAZEM ADMINISTRATION, THIS ALSO INCLUDES HR DURING ACTIVITY. SPO2 HAS BEEN MAINTAINED VIA 2-3L NC DURING SHIFT WHICH IS A DECREASE FROM 7-10L DURING PREVIOUS NOC SHIFT. SHE HAS DENIED FEELINGS OF CHEST PAIN/PRESSURE. SHE DID REPORT FEELING LIGHTHEADED UPON AMBULATION TO BR THIS AM BUT APPEARED STEADY ON HER FEET A 1 PERSON ASSIST. SHE DENIED FEELINGS OF NAUSEA/VOMITTING. CBG NOTED TO RANGE 200'S-347, BG WAS TREATED PER EMAR ORDERS/PROTOCOL. AT APPROX. 1500 THIS RN ENTERED PT ROOM AND PT WAS DRINKING A "MOCHA LATTE" THAT HER DAUGHTER BROUGHT HER IN. THIS RN EDUCATED PT AND HER DAUGHTER REGARDING ADHERING TO A LOW SUGAR, ADA DIET IN ORDER TO REGULATE BLOOD GLUCOSE. PT AND DAUGHTER WERE ALSO EDUCATED REGARDING CORRELATION OF ELEVATED BG AND INCREASED RISK FOR INFECTION. SHE HAS SAT UP IN RECLINER FOR MAJORITY OF SHIFT AND CALLED APPROPRIATELY. CALL LIGHT IS W/IN REACH.
[2023-06-10 20:09] VITALS: BP 103/68
[2023-06-10 23:41] VITALS: BP 99/65
[2023-06-11 04:11] VITALS: BP 112/72
--- NOTE | 2023-06-11 04:47 | NUR ---
SHIFT SUMMARY NO ACUTE CHANGES OVERNIGHT. PT NEEDING 2L VIA WHILE AWAKE, 4L VIA NC WHILE SLEEPING. BP STABLE. AFIB WITH HR 80-90'S, INCREASES TO 110'S WITH EXERTION. AFEBRILE. A&O X4. ABLE TO MAKE NEEDS KNOWN. APPEARS FORGETFUL AT TIMES. BED ALARM ON FOR SAFETY. 1P ASSIST TO BSC. BED IN LOWEST POSITION AND CALL LIGHT WITHIN REACH. THIS RN WILL REPORT TO ONCOMING DAYSHIFT RN.
[2023-06-11 07:32] VITALS: BP 110/91
--- NOTE | 2023-06-11 10:41 | NUR ---
[place] of Care: Care assumed at 0700hr. Patient sleeping, but easily roused to verbal stimuli. Oriented x4. Denies pain, discomfort, SOB, or dyspnea. VSS, SpO2 98% on 4L/NC at shift change, then titrated off throughout morning. Spo2 now 93% on RA. Tolerated transferring to BSC and shower without difficulty. At 100% of breakfast without difficulty. Heart rhythm shows A-fibb 110-120 but occasionally increasing to 140. Spoke with Dr. Doty this morning, plan to d/c patient to home this afternoon if patient able to remain off supplemental O2 and HR is better controlled. Extended release Lopressor dose increased this morning per Dr. Doty. peripheral IV x1 patent intact. Call light in reach, makes needs known. Will continue to monitor.
[2023-06-11 14:23] VITALS: BP 88/63
[2023-06-11 15:44] VITALS: BP 103/77
[2023-06-11] MEDS ORDERED: PRED20 PO (16:15)
[2023-06-11] MEDS ORDERED: DILT120ERA PO (16:16)
[2023-06-11] MEDS ORDERED: GUAI600T33 PO (16:16)
[2023-06-11] MEDS ORDERED: DOXY100 PO (16:17)
[2023-06-11] MEDS ORDERED: ELIQUIS5 M2 PO (16:17)
[2023-06-11] MEDS ORDERED: METO25ER PO (16:17)
--- NOTE | 2023-06-11 17:06 | NUR ---
Discharge/Fall: Discharge orders received per Dr. Doty. D/c medications and instructions reviewed with patient and her daughter. After discussion with this RN and care management RN, patient's daughter had previous obtained BSC for patient to use at home. Therefor she would not need to walk up stairs to use the bathroom at home. Peripheral IV x1 to rt AC discontinued. After reviewing d/c paperwork, patient transferred to bathroom to void and get dressed in personal clothing with RN at side. Once in the bathroom, patient stated "i got it, im fine" and this RN began to step away from patient. Patient then lost balance and fell to her knee's, this RN able to slightly slow her decent to floor. Patient did not hit her head or obtain any injuries. Patient assisted by x2 staff to stand and sit on toilet. Patient then able to transfer back to chair in room with minimal assistance. This RN and meteorologist in charge stressed need to stay in hospital another day r/t safety and gaining strength. The prior heavily stressed multiple times to patient and her daughter. Patient and daughter both stated they still felt comfortable with discharge to home. Call also placed to Dr. Doty, who stated d/c to home only if patient and daughter felt comfortable with discharge and providing her care/needs. This RN and meteorologist in charge then stressed importance of not getting up/walking without assistance and danger of falling consequences while on blood thinner's . Daughter also states she would stop by [facility] to obtain walker on the way home. Patient then assisted to daughters car at 1700 without difficulty. All belonging's sent home with patient.
== END 2023-06-11 16:56 | disposition home or self-care (01) | DRG 177 ==
LOC: ER 19:01 → PCU 22:12
PROVIDERS: Emergency Medicine; Internal Medicine; ADMIT Internal Medicine
DX: J15.69 Pneumonia due to other Gram-negative bacteria (principal); G92.8 Other toxic encephalopathy; E87.1 Hypo-osmolality and hyponatremia; I50.32 Chronic diastolic (congestive) heart failure; D63.8 Anemia in other chronic diseases classified elsewhere; I48.0 Paroxysmal atrial fibrillation; M06.9 Rheumatoid arthritis, unspecified; E11.9 Type 2 diabetes mellitus without complications; E87.6 Hypokalemia; E78.5 Hyperlipidemia, unspecified; I11.0 Hypertensive heart disease with heart failure; R19.7 Diarrhea, unspecified; R74.01 Elevation of levels of liver transaminase levels; Z88.8 Allergy status to other drugs, medicaments and biological substances; Z79.84 Long term (current) use of oral hypoglycemic drugs; Z79.52 Long term (current) use of systemic steroids; Z79.899 Other long term (current) drug therapy; Z11.52 Encounter for screening for COVID-19; Z86.16 Personal history of COVID-19
CPT/HCPCS: 0241U; 36415; 71045; 80053; 80069; 82728; 82803; 82947; 83036; 83540; 83550; 83605; 83735; 83880; 84145; 84436; 84443; 84484; 85025; 85027; 87040; 87507; 93005; 93010; 94640; 94660; 94664; 94762; 96365; 96375; 99285-25; A9270; J0456; J1650; J1815; J2185; J2405; J2543; J2930; J3370; J3480; J7030; J7050; J7512